=== PATIENT | male | born 1995 | race Caucasian/White ===

== ENCOUNTER 2023-01-06 19:50 | Outpatient (BNV) | payer OTHER, SELFPAY | END 2023-01-07 08:00 | PROVIDERS: Admitting Provider Psychiatry & Neurology Psychiatry; Visit Provider Internal Medicine | DX: R00.1 Bradycardia, unspecified (principal) | CPT/HCPCS: 93010 ==

== ENCOUNTER 2023-01-06 19:50 | Inpatient (IN) | payer OTHER, SELFPAY ==
--- NOTE | ~2023-01-06 | XR_ITS ---
EXAMINATION: XR HAND, RIGHT CLINICAL INFORMATION: Trauma. Pain. COMPARISON: None available. TECHNIQUE: PA, lateral, and oblique views of the right hand. FINDINGS: The bones and soft tissues are normal. No fracture. Alignment is anatomic. Joint spaces are maintained. No erosions or soft tissue calcifications. XR/XR hand RT 2V IMPRESSION: Normal right hand.
[2023-01-06 20:00] VITALS: BP 111/67; PULSE 52; RESP 16; TEMP 36.6; O2SAT 98
[2023-01-06] MEDS: Ibuprofen 400 MG TABLET PO (22:35)
[2023-01-06] MEDS: Benztropine Mesylate 0.5 MG TABLET PO (22:36)
[2023-01-06] MEDS: risperiDONE 2 MG TABLET PO (22:36)
--- NOTE | 2023-01-06 23:30 | PC.ADMIT ---
Ran transferred from [facility] [place] [facility] on a section 12, he signed a CV upon arrival to [facility] [place]. Ran is alert and oriented X'4 he is pleasant and cooperative with the admission process. The patient states that his medications are not working any more I hear voices and I saw my uncle the other day. I knew I was hallucinating because like I said he's . patient had a diagnosis of MDD with psychotic features. he denies suicidal/homicidal ideation however he endorses depression and anxiety as well as auditory and visual hallucinations. he stated that he wants to stay here as long as it takes to get his medications adjusted. treatment plan initiated, oriented to unit, monitor for safety
--- NOTE | 2023-01-07 08:00 | ECG_ITS ---
Test Reason : BRADYCARDIA Blood Pressure : / mmHG Vent. Rate : 056 BPM Atrial Rate : 056 BPM P-R Int : 146 ms QRS Dur : 090 ms QT Int : 424 ms P-R-T Axes : 037 025 025 degrees QTc Int : 409 ms Sinus bradycardia with sinus arrhythmia Otherwise normal ECG No previous ECGs available Referred By: Dion Alcantar Electronically Signed By:TEETEE DAN
[2023-01-07] MEDS: Benztropine Mesylate 0.5 MG TABLET PO ×2 (08:55→21:04)
[2023-01-07] MEDS: risperiDONE 2 MG TABLET PO ×2 (08:55→21:05)
[2023-01-07] MEDS: Ibuprofen 400 MG TABLET PO (08:55)
[2023-01-07 09:31] VITALS: BP 121/74; PULSE 63; RESP 14; TEMP 36.9; O2SAT 98
[2023-01-07 10:06] LABS: Alanine Aminotransferase 22 U/L (0-40); Albumin Level 4.6 g/dL (3.5-5.0); Alkaline Phosphatase 66 U/L (39-117); Anion Gap 17 (12-20); Aspartate Amino Transferase 16 U/L (5-37); Bilirubin Total 0.5 mg/dL (0.0-1.0); Blood Urea Nitrogen 10 mg/dL (9-16); Calcium 9.9 mg/dL (8.4-10.2); Carbon Dioxide 19 mmol/L (22-29); Chloride 109 mmol/L (96-108); Cholesterol 124 mg/dL; Estimated Glomerular Filt Rate > 60; Glucose Fasting 110 mg/dL (60-99); HDL Cholesterol 41 mg/dL; LDL Cholesterol Calculated 76 mg/dl; Potassium 3.6 mmol/L (3.3-5.1); Sodium 141 mmol/L (135-145); Total Protein 7.6 g/dL (6.5-8.0); Triglycerides 39 mg/dL
[2023-01-07 10:23] LABS: Free T4 (Free Thyroxine) 0.98 ng/dL (0.71-1.85); Thyroid Stimulating Hormone 1.31 uIU/mL (0.32-4.0)
[2023-01-07 10:28] LABS: Folate 10.5 ng/mL (> or = 4.0); Vitamin B12 539 pg/mL (200-900)
--- NOTE | 2023-01-07 15:41 | P.HPPS_ITS ---
HPI Date of Service: 01/07/23 Chief Complaint: Psychosis aud choi Sources of Information: patient interviewed, chart reviewed and crisis/core team assessment reviewed HPI Subjective Notes: Pierre Warning and Conditional Voluntary Narrative: Patient is a 27-year-old male with history of schizophrenia who presents for worsening AH and unsafe thoughts and the face of increased stress from his mother. Patient reports his last hospitalization was about 2 years ago but since then his symptoms have been well treated, without any AH and he has remained on his medications. Patient says over the past few weeks his mother has been significantly aggravating him, wanting him to break-up with his girlfriend and texting him relentlessly mean things, and 1 point saying she hopes he chokes on a piece of pizza. Patient tried to block her from his phone but then she threaten to called DCF if he did. Patient and his girlfriend live at his sister's and says that his sister will corroborate his account and gave permission to call her, giving her phone number. Patient says that starting about 3 weeks ago, coinciding with this increased stress, AH has returned. He said it tells him to do things like punch the wall which he did and hurt his h and. It also has told him to hurt himself or kill himself but he says he does not want to at all and has no actual suicidality; that said he was worried that if symptoms do not get better that he would eventually worsened and was concerned about getting suicidal; he endorses trouble sleeping at night, frequently waking up. Patient says that since coming to the unit he has had no AH at all and slept well last night. Patient was initially worried that his medications had stop working however he now thinks that they do work well but that his stress level just became overwhelming. He denies any SI at all and says he loves life. Past Psychiatric History: Last hospitalization 2 years ago following psychotic symptoms SI, and having overdosed on vitamins Medical Evaluation Reviewed: Hospitalist Joseph Pending [facility] Medical History (Updated 01/07/23 @ 19:21 by Ari Kidd MD) No pertinent past medical history Schizophrenia Family History: Mother; mental illness Social History: Currently lives at his sister Edward with his supportive girlfriend Patient has a total of 7 sisters however is only close to 1 of Substance History: None expressed Trauma History: Deferred Diagnostics Vital Signs (24Hr): Vital Signs - 24 hr 01/06/23 20:00 01/07/23 09:31 Temperature 97.8 F 98.4 F Pulse Rate 52 63 Respiratory Rate 16 14 Blood Pressure 111/67 121/74 Pulse Oximetry 98 98 Oxygen Delivery Method Room Air Room Air Labs 01/07/23 08:49 Labs: Laboratory Results - last 48 hr 01/07/23 01/07/23 08:49 08:49 Sodium 141 Potassium 3.6 Chloride 109 H Carbon Dioxide 19 L Anion Gap 17 BUN 10 Creatinine 0.83 Estim Creat Clear Calc TNP Estimated GFR > 60 Fasting Glucose 110 H Calcium 9.9 Total Bilirubin 0.5 AST 16 ALT 22 Alkaline Phosphatase 66 Total Protein 7.6 Albumin 4.6 Triglycerides 39 Cholesterol 124 LDL Cholesterol, Calc 76 HDL Cholesterol 41 Vitamin B12 539 Folate 10.5 TSH 1.31 Free T4 0.98 Meds/Allergies Meds Home Medications Medication Instructions Recorded Confirmed Type benztropine 1 mg tablet 1 mg PO BID 01/06/23 01/06/23 History diphenhydramine HCl 50 mg capsule 50 mg PO BEDTIME PRN Insomnia 01/06/23 01/06/23 History (Banophen) mirtazapine 7.5 mg tablet 7.5 mg PO BEDTIME 01/06/23 01/06/23 History propranolol 10 mg tablet 10 mg PO BID 01/06/23 01/06/23 History risperidone 3 mg tablet 3 mg PO BID 01/06/23 01/06/23 History topiramate 50 mg tablet 50 mg PO BID 01/06/23 01/06/23 History Allergies Allergies Allergy/AdvReac Type Severity Reaction Status Date / Time acetaminophen [From Tylenol] Allergy Unknown Verified 01/07/23 10:51 Mental Status Exam Mental Status Exam Narrative: Pt is alert and oriented; behavior is cooperative, friendly and calm; patient is not in distress; dressed in casual attire with unkempt hair but adequate hygiene; mood is described as anxious and affect congruent; eye contact appropriate; Speech is normal rate, volume and prosody and not pressured; no psychomotor agitation/retardation present; thought process is organized and goal directed; Thought content is on stress at home but also on tx; otherwise pertinent to relevant topics; does not seem to have delusional or paranoid thoughts; denies any SI/HI. Recent AH however patient says none for the past day. Patients insight and judgment appear intact. Assessment & Plan Assessment & Plan (1) Schizophrenia: Status: Acute Code(s): F20.9 - Schizophrenia, unspecified Plan Patient is a 27-year-old male with history of schizophrenia who presents for worsening AH and unsafe thoughts and the face of increased stress from his mother. Patient reports he has been relatively stable for the past 2 years on current medication regimen and would like it to be continued. It seems that exacerbation of psychotic symptoms is due to increased stress from his mother. Initially patient's report does is so far reasonable, rather than delusional however will continue to monitor and get collateral from his sister. Since coming to the unit, patient reports no psychotic symptoms, no AVH reasons that this is due getting reprieve from stressful situation Will continue medication regimen Patient complains of right hand pain status post punching a wall; will get x-ray (reviewed notes from [facility] ED and no x-ray done) Patient complains of dysuria; obtained UA which was unremarkable Plan: CV Q 15 minutes Continue Risperdal; it was placed a 2 mg b.i.d.; since patient says he has no ps ychotic symptoms since coming to the unit, will leave it here for now (normal 3 mg b.i.d.) Continue mirtazapine 7.5 mg q.h.s. Continue Cogentin 0.5mg b.i.d. Continue propranolol 10 mg b.i.d. Continue Topamax 50 mg b.i.d. Will obtain collateral Patient educated on: diagnosis, medication risk/benefits and medical condition Informed Consent: understands Reason for continued inpatient stay Substantial Risk for: rapid decompensation Statement Statement: I have reviewed the history and physical and performed a pertinent examination on my patient. No changes have occurred unless specified. If the History and Physical was not performed prior to admission, the Hospitalist's service will be consulted for completing the admission physical. Time Spent With Patient Time: Total time managing care of this patient today ____ minutes.
--- NOTE | 2023-01-07 15:48 | P.CONHOSP_ITS ---
History of Present Illness Data of Consult Service Date: 01/07/23 Requesting physician: Dion Alcantar Primary Care Provider: None Physician HPI Reason for consult: medical H&P 27 year old male without significant medical history admitted to psychiatry with consult placed to hospitalist service for medical H&P. [place] [facility] Labs unmarkable. UTox negative. Patient reports punching a brick wall out of anger 2 days ago. Since then has had limited rom and pain right hand, specif ically 3rd mcp joint. He is also reporting increased urinary frequency, dysuria but denies fevers chills, hematuria, urgency, flank pain, and does report some lower abd pain. No other complaints. No etoh use, cigarette smoking, or illicit drug use. Review of Systems Review of Systems: General: No fevers, malaise, unintentional weight loss HEENT: No blurred vision, diplopia. No sore throat, nasal congestion, rhinorrhea, sinus pain, ear pain Cardiovascular: No chest pain, palpitations, or leg edema Respiratory: No shortness of breath, wheezing, cough GI: +abd pain. No nausea, vomiting, diarrhea, constipation, melena, hematochezia : +dysuria, +increased urinary frequency. No hematuria, decreased urinary output MSK: No myalgia, back pain. +R hand pain Neuro: No headaches, weakness, paresthesias Skin: No rashes or lesions PMFSH Medical History No pertinent past medical history Social History Household Members: Family and Other Household Members Other:: sister, nephews, niece and girlfriend Housing: House Do you presently have visiting nurse or other home services: No Patient Tobacco Use Status: Never used Tobacco Use of substances other than those prescribed or required for medical reasons: No Currently Displaying Signs/Symptoms of Drug Intoxication Withdrawal: No Have you been hit, kicked, punched, or otherwise hurt by someone within the past year? If so, by whom?: No Is there a partner from a previous relationship who is making you feel unsafe now?: No Are you made to feel afraid or neglected: No Advance Directives: No Advance Directives Information Provided: Yes Do you have thoughts of harming others: None Do you have a plan to hurt others: No Plan Recently lost weight without trying: No Nutrition Risks: No Nutritional Risk Poor oral hygiene: Yes service: No Sexual orientation: Straight/Heterosexual Meds Allergies Allergy/AdvReac Type Severity Reaction Status Date / Time acetaminophen [From Tylenol] Allergy Unknown Verified 01/07/23 10:51 Active Medications: Current Medications Al Hydroxide/Mg Hydroxide (Magnesium Hydrox/Alum Hydrox 30 Ml Oral.Susp) 30 ml PO Q6H PRN PRN Reason: Heartburn/Nausea Benztropine Mesylate (Benztropine Mesylate 0.5 Mg Tablet) 0.5 mg PO BID [facility] Last Admin: 01/07/23 08:55 Dose: 0.5 mg Hydroxyzine HCl (Hydroxyzine Hcl 25 Mg Tablet) 25 mg PO Q6H PRN PRN Reason: Anxiety Ibuprofen (Ibuprofen 600 Mg Tablet) 600 mg PO Q6H PRN PRN Reason: Pain, Moderate(Pain Scale 4-6) Magnesium Hydroxide (Milk Of Magnesia 30 Ml Oral.Susp) 30 ml PO DAILY PRN PRN Reason: Constipation Risperidone (Risperidone 2 Mg Tablet) 2 mg PO BID [facility] Last Admin: 01/07/23 08:55 Dose: 2 mg Trazodone HCl (Trazodone Hcl 50 Mg Tablet) 50 mg PO BEDTIME MRX1 PRN PRN Reason: Insomnia Home Medications Medication Instructions Recorded Confirmed Last Taken Type benztropine 1 mg tablet 1 mg PO BID 01/06/23 01/06/23 Unknown History diphenhydramine HCl 50 mg capsule 50 mg PO BEDTIME PRN Insomnia 01/06/2312/09 Unknown History (Banophen) mirtazapine 7.5 mg tablet 7.5 mg PO BEDTIME 01/06/23 01/06/23 Unknown History propranolol 10 mg tablet 10 mg PO BID 01/06/23 01/06/23 Unknown History risperidone 3 mg tablet 3 mg PO BID 01/06/23 01/06/23 Unknown History topiramate 50 mg tablet 50 mg PO BID 01/06/23 01/06/23 Unknown History Physical Exam Vital Signs and Narrative: Vital Signs: Last Vital Signs Temp 98.4 F 01/07/23 09:31 Pulse 63 01/07/23 09:31 Resp 14 01/07/23 09:31 BP 121/74 01/07/23 09:31 Pulse Ox 98 01/07/23 09:31 O2 Del Method Room Air 01/07/23 09:31 Constitutional - Awake and Alert, No apparent distress Eyes - PERRLA, EOMI Cardiovascular - S1S2, RRR, No edema Respiratory - Normal lung expansion, Normal respiratory effort, No respiratory distress, CTA bilaterally Gastrointestinal - mild suprapubic ttp, ND; +BS; No rebound or guarding - No CVA tenderness Extremities - no calf tenderness bilaterally, no swelling Musculoskeletal - Normal inspection, tenderness right 3rd mcp joint with limited rom right hand, no swelling or erythema or ecchymosis Skin - Warm/Dry Neurological - Alert & oriented x3, CN II-XII in tact, 5/5 strength BUE and BLE Psychological - Appropriate affect Results Labs 01/07/23 08:49 Labs: Laboratory Results - last 24 hr 01/07/23 01/07/23 08:49 08:49 Anion Gap 17 Estim Creat Clear Calc TNP Estimated GFR > 60 Fasting Glucose 110 H Calcium 9.9 Total Bilirubin 0.5 AST 16 ALT 22 Alkaline Phosphatase 66 Total Protein 7.6 Albumin 4.6 Triglycerides 39 Cholesterol 124 LDL Cholesterol, Calc 76 HDL Cholesterol 41 Vitamin B12 539 Folate 10.5 TSH 1.31 Free T4 0.98 Assessment and Plan (1) Routine medical exam: Status: Acute Plan 27 year old male without significant medical history admitted to psychiatry with consult placed to hospitalist service for medical H&P. Chart reviewed from [facility]. #Mood disorder -plan per psychiatry #Right hand pain -s/p punching brick wall -xray right hand ordered -tylenol, ibuprofen, ice #Dysuria/increased urinary frequency -UA CC with urine culture ordered Thank you for this consult. Will continue following for results. Time Spent With Patient Time: Total time managing care of this patient today ____ minutes.
[2023-01-07 16:54] LABS: Appearance Urine Clear; Color Urine Yellow; Glucose Urine UA Negative (Negative); Leukocyte Esterase Urine Negative (Negative); Nitrite Urine Negative (Negative); PH 5.5 (5.0-9.0); Specific Gravity - Urine 1.025 (1.005-1.025); Urine Blood Negative (Negative); Urine Ketones Negative (Negative); Urine Protein Negative (Neg-Trace)
[2023-01-07 17:39] VITALS: BMI 27.1
--- NOTE | 2023-01-07 17:59 | PC.NURSE ---
Patient signed 3 day notice on 01/07/23.
[2023-01-07] MEDS: Milk of Magnesia 30 ML ORAL.SUSP PO (20:27)
[2023-01-07] MEDS: Mirtazapine 7.5 MG TABLET PO (21:04)
[2023-01-07] MEDS: Propranolol HCL 10 MG TABLET PO (21:05)
[2023-01-07 21:08] VITALS: BP 110/68; PULSE 74; TEMP 36.5; O2SAT 99
[2023-01-08 08:20] VITALS: BP 114/64; PULSE 59; TEMP 36.6; O2SAT 100
[2023-01-08] MEDS: risperiDONE 2 MG TABLET PO ×2 (08:35→20:44)
[2023-01-08] MEDS: Propranolol HCL 10 MG TABLET PO ×2 (08:35→20:44)
[2023-01-08] MEDS: Benztropine Mesylate 0.5 MG TABLET PO ×2 (08:35→20:44)
[2023-01-08] MEDS: Ibuprofen 600 MG TABLET PO ×2 (08:36→16:26)
--- NOTE | 2023-01-08 08:41 | P.PNPSI_ITS ---
Subjective Subjective Date of Service: 01/08/23 Reason For Visit: Psychosis aud choi Subjective Notes: Conditional Voluntary Interim History: Pt denies suicidal or homicidal ideation. Pt reports feeling better. He denies VH/AH. He states it is due to his relationship with his mother that he hears voices and struggles with mental health. He reports he will go to his sister's house. Per nursing, pt sleeping through the night. No behavioral concerns. He is taking medications as prescribed. No side effect. Review of Systems Review of Systems General: No fevers, malaise, unintentional weight loss HEENT: No blurred vision, diplopia. No sore throat, nasal congestion, rhinorrhea, sinus pain, ear pain Cardiovascular: No chest pain, palpitations, or leg edema Respiratory: No shortness of breath, wheezing, cough GI: +abd pain. No nausea, vomiting, diarrhea, constipation, melena, hematochezia : +dysuria, +increased urinary frequency. No hematuria, decreased urinary output MSK: No myalgia, back pain. +R hand pain Neuro: No headaches, weakness, paresthesias Skin: No rashes or lesions Mental Status Exam Mental Status Exam Narrative: Appearance: casually groomed, fair hygiene, in NAD Behavior: cooperative Psychomotor: no agitation or retardatino noted Speech: clear, normal rate, rhythm, spontaneous TP: linear TC: wanting to get away from mother, feeling better Mood: better Affect: congruent SI: none HI: none VH/AH: none Delusions: none Insight/judgment: fair x 2. memory/cog: alert, oriented x 3. Diagnostics Vital Signs (24Hr): Vital Signs - 24 hr 01/07/23 09:31 01/07/23 21:08 01/08/23 08:20 Temperature 98.4 F 97.7 F 97.9 F Pulse Rate 63 74 59 Respiratory Rate 14 Blood Pressure 121/74 110/68 114/64 Pulse Oximetry 98 99 100 Oxygen Delivery Method Room Air Room Air Room Air BMI result Body Mass Index 27.1 Labs 01/07/23 08:49 Labs: Laboratory Results - last 48 hr 01/07/23 01/07/23 01/07/23 08:49 08:49 15:52 Sodium 141 Potassium 3.6 Chloride 109 H Carbon Dioxide 19 L Anion Gap 17 BUN 10 Creatinine 0.83 Estim Creat Clear Calc TNP Estimated GFR > 60 Fasting Glucose 110 H Calcium 9.9 Total Bilirubin 0.5 AST 16 ALT 22 Alkaline Phosphatase 66 Total Protein 7.6 Albumin 4.6 Triglycerides 39 Cholesterol 124 LDL Cholesterol, Calc 76 HDL Cholesterol 41 Vitamin B12 539 Folate 10.5 TSH 1.31 Free T4 0.98 Urine Color Yellow Urine Appearance Clear Urine pH 5.5 Ur Specific [place] 1.025 Urine Protein Negative Urine Glucose (UA) Negative Urine Ketones Negative Urine Blood Negative Urine Nitrite Negative Ur Leukocyte Esterase Negative Imaging Radiology Impressions: ITS Impressions Hand X-Ray 01/07/23 17:35 IMPRESSION: Normal right hand. Medications Medications Current Medications Al Hydroxide/Mg Hydroxide (Magnesium Hydrox/Alum Hydrox 30 Ml Oral.Susp) 30 ml PO Q6H PRN PRN Reason: Heartburn/Nausea Benztropine Mesylate (Benztropine Mesylate 0.5 Mg Tablet) 0.5 mg PO BID [facility] Last Admin: 01/08/23 08:35 Dose: 0.5 mg Hydroxyzine HCl (Hydroxyzine Hcl 25 Mg Tablet) 25 mg PO Q6H PRN PRN Reason: Anxiety Ibuprofen (Ibuprofen 600 Mg Tablet) 600 mg PO Q6H PRN PRN Reason: Pain, Moderate(Pain Scale 4-6) Last Admin: 01/08/23 08:36 Dose: 600 mg Magnesium Hydroxide (Milk Of Magnesia 30 Ml Oral.Susp) 30 ml PO DAILY PRN PRN Reason: Constipation Last Admin: 01/07/23 20:27 Dose: 30 ml Mirtazapine (Mirtazapine 7.5 Mg Tablet) 7.5 mg PO BEDTIME [facility] Last Admin: 01/07/23 21:04 Dose: 7.5 mg Propranolol HCl (Propranolol Hcl 10 Mg Tablet) 10 mg PO BID [facility]; Protocol Last Admin: 01/08/23 08:35 Dose: 10 mg Risperidone (Risperidone 2 Mg Tablet) 2 mg PO BID [facility] Last Admin: 01/08/23 08:35 Dose: 2 mg Risperidone (Risperidone 1 Mg Tablet) 1 mg PO BID PRN PRN Reason: AH/psychosis Trazodone HCl (Trazodone Hcl 50 Mg Tablet) 50 mg PO BEDTIME MRX1 PRN PRN Reason: Insomnia Allergies Allergies Allergy/AdvReac Type Severity Reaction Status Date / Time acetaminophen [From Tylenol] Allergy Unknown Verified 01/07/23 10:51 Assessment & Plan Assessment & Plan (1) Schizophrenia: Status: Acute Code(s): F20.9 - Schizophrenia, unspecified Plan 27 year old male without significant medical history admitted to psychiatry with consult placed to hospitalist service for medical H&P. Chart reviewed from [facility] [place]. #Mood disorder -plan per psychiatry #Right hand pain -s/p punching brick wall -xray right hand ordered -tylenol, ibuprofen, ice #Dysuria/increased urinary frequency -UA CC with urine culture ordered Thank you for this consult. Will continue following for results. 01/08- continue tx. Reason for continued inpatient stay Substantial Risk for: inability to function Time Spent With Patient Time: Total time managing care of this patient today ____ minutes.
[2023-01-08] MEDS: polyethylene glycoL 3350 17 GM POWD.PACK PO (15:18)
--- NOTE | 2023-01-08 16:23 | P.PNPSI_ITS ---
Subjective Subjective Date of Service: 01/08/23 Reason For Visit: Psychosis aud choi Interim History: met with patient; discussed with team patient calm, friendly and polite. pt remains in good behavioral and impulse control; getting along well w/ peers and staff. No SI/HI; no AH at all since coming to the unit. Patient was thankful that fiction and nonfiction prose writer called his sister as she fully corroborated patients account. Pt says he's looking forward to going home and that he misses his family. He wants to discharge tomorrow but accepts to stay until Friday. Reviewed medications and pt normally takes Risperdal 3mg BID; however, here he's been stable on 2mg BID (with 1mg BID as prn). Pt says he has ample supply of all his medications at home and will discuss how to proceed regarding dosing with his oupt provider (pt has both prescriber and therapist with whom he has good rapport). urgent care physician talked w/ pt's sister Taya who corroborates all that patient reported; she said their mother has been harassing him/them for a long time but that it's gotten much worse since he started dating a woman mother does not like. Sister says it got so bad that she eventually had patient come and live with her. She says mother threatens via text and phone calls, making outlandish accusations. Mother told Taya to kick him out of her house and if she did not, mother would call DCF and make an accusation (taya has all this on text from the mother). Taya says her brother has been stable and doing well for years and it's only after this escalation of attacks that he had a resurgence of symptoms. She welcomes him to return to her house. Mental Status Exam Mental Status Exam Narrative: Pt is alert and oriented; behavior is cooperative, friendly and calm; patient is not in distress; dressed in casual attire with adequate hygiene; mood is described as good and affect congruent; eye contact appropriate; Speech is normal rate, volume and prosody and not pressured; no psychomotor agitation/retardation present; thought process is organized and goal directed; Thought content on tx and discharge; otherwise pertinent to relevant topics; no delusional or paranoid thoughts; denies any SI/HI. Denies AVH and no evidence perceptual disturbance. Patients insight and judgment are intact. Diagnostics Vital Signs (24Hr): Vital Signs - 24 hr 01/07/23 21:08 01/08/23 08:20 Temperature 97.7 F 97.9 F Pulse Rate 74 59 Blood Pressure 110/68 114/64 Pulse Oximetry 99 100 Oxygen Delivery Method Room Air Room Air BMI result Body Mass Index 27.1 Labs 01/07/23 08:49 Labs: Laboratory Results - last 48 hr 01/07/23 01/07/23 01/07/23 08:49 08:49 15:52 Sodium 141 Potassium 3.6 Chloride 109 H Carbon Dioxide 19 L Anion Gap 17 BUN 10 Creatinine 0.83 Estim Creat Clear Calc TNP Estimated GFR > 60 Fasting Glucose 110 H Calcium 9.9 Total Bilirubin 0.5 AST 16 ALT 22 Alkaline Phosphatase 66 Total Protein 7.6 Albumin 4.6 Triglycerides 39 Cholesterol 124 LDL Cholesterol, Calc 76 HDL Cholesterol 41 Vitamin B12 539 Folate 10.5 TSH 1.31 Free T4 0.98 Urine Color Yellow Urine Appearance Clear Urine pH 5.5 Ur Specific [place] 1.025 Urine Protein Negative Urine Glucose (UA) Negative Urine Ketones Negative Urine Blood Negative Urine Nitrite Negative Ur Leukocyte Esterase Negative Imaging Radiology Impressions: ITS Impressions Hand X-Ray 01/07/23 17:35 IMPRESSION: Normal right hand. Medications Medications Current Medications Al Hydroxide/Mg Hydroxide (Magnesium Hydrox/Alum Hydrox 30 Ml Oral.Susp) 30 ml PO Q6H PRN PRN Reason: Heartburn/Nausea Benztropine Mesylate (Benztropine Mesylate 0.5 Mg Tablet) 0.5 mg PO BID [facility] Last Admin: 01/08/23 08:35 Dose: 0.5 mg Hydroxyzine HCl (Hydroxyzine Hcl 25 Mg Tablet) 25 mg PO Q6H PRN PRN Reason: Anxiety Ibuprofen (Ibuprofen 600 Mg Tablet) 600 mg PO Q6H PRN PRN Reason: Pain, Moderate(Pain Scale 4-6) Last Admin: 01/08/23 08:36 Dose: 600 mg Magnesium Hydroxide (Milk Of Magnesia 30 Ml Oral.Susp) 30 ml PO DAILY PRN PRN Reason: Constipation Last Admin: 01/07/23 20:27 Dose: 30 ml Mirtazapine (Mirtazapine 7.5 Mg Tablet) 7.5 mg PO BEDTIME [facility] Last Admin: 08/01/23 21:04 Dose: 7.5 mg Polyethylene Glycol (Polyethylene Glycol 3350 17 Gm Powd.Pack) 17 gm PO DAILY PRN PRN Reason: Constipation Last Admin: 01/08/23 15:18 Dose: 17 gm Propranolol HCl (Propranolol Hcl 10 Mg Tablet) 10 mg PO BID [facility]; Protocol Last Admin: 01/08/23 08:35 Dose: 10 mg Risperidone (Risperidone 2 Mg Tablet) 2 mg PO BID [facility] Last Admin: 01/08/23 08:35 Dose: 2 mg Risperidone (Risperidone 1 Mg Tablet) 1 mg PO BID PRN PRN Reason: AH/psychosis Trazodone HCl (Trazodone Hcl 50 Mg Tablet) 50 mg PO BEDTIME MRX1 PRN PRN Reason: Insomnia Allergies Allergies Allergy/AdvReac Type Severity Reaction Status Date / Time acetaminophen [From Tylenol] Allergy Unknown Verified 01/07/23 10:51 Assessment & Plan Assessment & Plan (1) Schizophrenia: Status: Acute Code(s): F20.9 - Schizophrenia, unspecified Plan Patient is a 27-year-old male with history of schizophrenia who presents for wor sening AH and unsafe thoughts and the face of increased stress from his mother.? Patient reports he has been relatively stable for the past 2 years on current medication regimen and would like it to be continued. It seems that exacerbation of psychotic symptoms is due to increased stress from his mother.? Initially patient's report does is so far reasonable, rather than delusional however will continue to monitor and get collateral from his sister.? Since coming to the unit, patient reports no psychotic symptoms, no AVH reasons that this is due getting reprieve from stressful situation Will continue medication regimen Patient complains of right hand pain status post punching a wall; will get x-ray (reviewed notes from [facility] [place] and no x-ray done) Patient complains of dysuria; obtained UA which was unremarkable Hospital course: 01/08 pt remains in good behavioral and impulse control; getting along well w/ peers and staff. No SI/HI; no AH at all since coming to the unit. Patient was thankful that fiction and nonfiction prose writer called his sister as she fully corroborated patients account. Pt says he's looking forward to going home and that he misses his family. He wants to discharge tomorrow but accepts to stay until Friday. Reviewed medications and pt normally takes Risperdal 3mg BID; however, here he's been stable on 2mg BID (with 1mg BID as prn). Pt says he has ample supply of all his medications at [facility] and will discuss how to proceed regarding dosing with his oupt provider (pt has both prescriber and therapist with whom he has good rapport). collateral: urgent care physician talked w/ pt's sister Taya who corroborates all that patient reported; she said their mother has been harassing him/them for a long time but that it's gotten much worse since he started dating a woman mother does not like. Sister s ays it got so bad that she eventually had patient come and live with her. She says mother threatens via text and phone calls, making outlandish accusations. Mother told Taya to kick him out of her house and if she did not, mother would call DCF and make an accusation (taya has all this on text from the mother). Taya says her brother has been stable and doing well for years and it's only after this escalation of attacks that he had a resurgence of symptoms. She welcomes him to return to her house. Impression: pt has remained in good behavioral and impulse control throughout; he has r emained organized in speech and behavior, without any psychotic symptoms, continuing to deny and AVH; no SI at all. Sister corroborates patients story. Pt has outpt providers and supportive, safe housing. Patient 3 day notice is coming due. Will continue to monitor but he does not rise to level of involuntary commitment and is does not appear to be in imminent risk for danger to self or others. Plan is for discharge on Friday. Plan: 3 day notice Q 15 minutes Continue Risperdal; it was placed a 2 mg b.i.d.; since patient says he has no psychotic symptoms since coming to the unit, will leave it here for now (normal 3 mg b.i.d.) Continue mirtazapine 7.5 mg q.h.s. Continue Cogentin 0.5mg b.i.d. Continue propranolol 10 mg b.i.d. Continue Topamax 50 mg b.i.d. Will obtain collateral #Right hand pain -s/p punching brick wall -xray right hand ordered and no fracture -tylenol, ibuprofen, ice #Dysuria/increased urinary frequency -UA CC with urine culture ordered and WNL Patient educated on: diagnosis, medication risk/benefits and therapeutic strategies Informed Consent: understands Reason for continued inpatient stay Substantial Risk for: stable for discharge Time Spent With Patient Time: Total time managing care of this patient today ____ minutes.
[2023-01-08] MEDS: Mirtazapine 7.5 MG TABLET PO (20:44)
[2023-01-08 20:47] VITALS: BP 107/65; PULSE 71; TEMP 36.9; O2SAT 98
[2023-01-09] MEDS: Ibuprofen 600 MG TABLET PO ×2 (06:59→12:26)
[2023-01-09 07:00] VITALS: BMI 27.8
[2023-01-09] MEDS: Benztropine Mesylate 0.5 MG TABLET PO ×2 (08:51→20:13)
[2023-01-09] MEDS: Propranolol HCL 10 MG TABLET PO ×2 (08:51→20:13)
[2023-01-09] MEDS: risperiDONE 2 MG TABLET PO ×2 (08:51→20:13)
[2023-01-09 09:22] VITALS: BP 108/72; PULSE 62; RESP 18; TEMP 36.8; O2SAT 99
--- NOTE | 2023-01-09 16:29 | HO.PSYCHPN ---
Subjective Subjective Date of Service: 01/09/23 Reason For Visit: Psychosis aud choi Subjective Notes: Conditional Voluntary Interim History: Pt continues to denies suicidal or homicidal ideation. Pt reports feeling better. He denies VH/AH. He continues to report he will block his mother for his own mental health. He reports he will go to his sister's house. Per nursing, pt sleeping through the night. No behavioral concerns. He is taking medications as prescribed. No side effect. Review of Systems Review of Systems General: No fevers, malaise, unintentional weight loss HEENT: No blurred vision, diplopia. No sore throat, nasal congestion, rhinorrhea, sinus pain, ear pain Cardiovascular: No chest pain, palpitations, or leg edema Respiratory: No shortness of breath, wheezing, cough GI: +abd pain. No nausea, vomiting, diarrhea, constipation, melena, hematochezia : +dysuria, +increased urinary frequency. No hematuria, decreased urinary output MSK: No myalgia, back pain. +R hand pain Neuro: No headaches, weakness, paresthesias Skin: No rashes or lesions Mental Status Exam Mental Status Exam Narrative: Appearance: casually groomed, fair hygiene, in NAD Behavior: cooperative Psychomotor: no agitation or retardatino noted Speech: clear, normal rate, rhythm, spontaneous TP: linear TC: wanting to get away from mother, feeling better Mood: better Affect: congruent SI: none HI: none VH/AH: none Delusions: none Insight/judgment: fair x 2. memory/cog: alert, oriented x 3. Diagnostics Vital Signs (24Hr): Vital Signs - 24 hr 01/08/23 20:47 01/09/23 09:22 Temperature 98.4 F 98.3 F Pulse Rate 71 62 Respiratory Rate 18 Blood Pressure 107/65 108/72 Pulse Oximetry 98 99 Oxygen Delivery Method Room Air Room Air BMI result Body Mass Index 27.8 Labs 01/07/23 08:49 Labs: Laboratory Results - last 48 hr 01/07/23 15:52 Urine Color Yellow Urine Appearance Clear Urine pH 5.5 Ur Specific [place] 1.025 Urine Protein Negative Urine Glucose (UA) Negative Urine Ketones Negative Urine Blood Negative Urine Nitrite Negative Ur Leukocyte Esterase Negative Imaging Radiology Impressions: ITS Impressions Hand X-Ray 01/07/23 17:35 IMPRESSION: Normal right hand. Medications Medications Current Medications Al Hydroxide/Mg Hydroxide (Magnesium Hydrox/Alum Hydrox 30 Ml Oral.Susp) 30 ml PO Q6H PRN PRN Reason: Heartburn/Nausea Benztropine Mesylate (Benztropine Mesylate 0.5 Mg Tablet) 0.5 mg PO BID [facility] Last Admin: 01/09/23 08:51 Dose: 0.5 mg Hydroxyzine HCl (Hydroxyzine Hcl 25 Mg Tablet) 25 mg PO Q6H PRN PRN Reason: Anxiety Ibuprofen (Ibuprofen 600 Mg Tablet) 600 mg PO Q6H PRN PRN Reason: Pain, Moderate(Pain Scale 4-6) Last Admin: 01/09/23 12:26 Dose: 600 mg Magnesium Hydroxide (Milk Of Magnesia 30 Ml Oral.Susp) 30 ml PO DAILY PRN PRN Reason: Constipation Last Admin: 01/07/23 20:27 Dose: 30 ml Mirtazapine (Mirtazapine 7.5 Mg Tablet) 7.5 mg PO BEDTIME [facility] Last Admin: 01/08/23 20:44 Dose: 7.5 mg Polyethylene Glycol (Polyethylene Glycol 3350 17 Gm Powd.Pack) 17 gm PO DAILY PRN PRN Reason: Constipation Last Admin: 01/08/23 15:18 Dose: 17 gm Propranolol HCl (Propranolol Hcl 10 Mg Tablet) 10 mg PO BID [facility]; Protocol Last Admin: 01/09/23 08:51 Dose: 10 mg Risperidone (Risperidone 2 Mg Tablet) 2 mg PO BID [facility] Last Admin: 01/09/23 08:51 Dose: 2 mg Risperidone (Risperidone 1 Mg Tablet) 1 mg PO BID PRN PRN Reason: AH/psychosis Trazodone HCl (Trazodone Hcl 50 Mg Tablet) 50 mg PO BEDTIME MRX1 PRN PRN Reason: Insomnia Allergies Allergies Allergy/AdvReac Type Severity Reaction Status Date / Time acetaminophen [From Tylenol] Allergy Unknown Verified 01/07/23 10:51 Assessment & Plan Assessment & Plan (1) Schizophrenia: Status: Acute Code(s): F20.9 - Schizophrenia, unspecified Plan 27 year old male without significant medical history admitted to psychiatry with consult placed to hospitalist service for medical H&P. Chart reviewed from [facility]. #Mood disorder -plan per psychiatry #Right hand pain -s/p punching brick wall -xray right hand ordered -tylenol, ibuprofen, ice #Dysuria/increased urinary frequency -UA CC with urine culture ordered PSYCH 01/08- continue tx. 01/09 continue tx dc tomorrow Reason for continued inpatient stay Substantial Risk for: inability to function Time Spent With Patient Time: Total time managing care of this patient today ____ minutes.
[2023-01-09] MEDS: traZODone HCL 50 MG TABLET PO (20:12)
[2023-01-09] MEDS: Mirtazapine 7.5 MG TABLET PO (20:12)
[2023-01-09] MEDS: risperiDONE 1 MG TABLET PO (20:13)
[2023-01-09 20:21] VITALS: BP 110/63; PULSE 67; RESP 18; TEMP 36.2; O2SAT 99
[2023-01-10 08:00] VITALS: BP 113/66; PULSE 63; TEMP 36.6; O2SAT 99
[2023-01-10] MEDS: risperiDONE 2 MG TABLET PO (08:00)
[2023-01-10] MEDS: Benztropine Mesylate 0.5 MG TABLET PO (08:00)
[2023-01-10] MEDS: Propranolol HCL 10 MG TABLET PO (08:00)
--- NOTE | 2023-01-10 09:42 | PM.PSYDC ---
DS: Providers Provider Date of Service: 01/10/23 Date of admission: 01/06/23 19:50 Primary care physician: None Physician Consults: 01/06/23 20:53 Consult to Hospitalist Routine Comment: Consulting Provider: Hospitalist Reason For Exam: adm physical DS: Diagnosis Discharge Diagnosis (1) Schizophrenia: Status: Acute DS: Medications Discharge Medications Home Medications: Previous Rx's Medication Instructions Recorded benztropine 0.5 mg tablet 0.5 mg PO BID #60 tabs 01/10/23 ibuprofen 600 mg tablet 600 mg PO Q6H PRN Pain, 01/10/23 Moderate(Pain Scale 4-6) #30 tabs mirtazapine 7.5 mg tablet 7.5 mg PO BEDTIME #30 tabs 01/10/23 polyethylene glycol 3350 17 gram 17 g PO DAILY PRN Constipation #14 01/10/23 oral powder packet ea propranolol 10 mg tablet 10 mg PO BID #60 tabs 01/10/23 risperidone 2 mg tablet 2 mg PO BID #60 tabs 01/10/23 trazodone 50 mg tablet 50 mg PO BEDTIME PRN Insomnia #30 01/10/23 tabs Mental Status Exam Mental Status Exam Narrative: Appearance: casually groomed, fair hygiene, in NAD Behavior: cooperative Psychomotor: no agitation or retardatino noted Speech: clear, normal rate, rhythm, spontaneous TP: linear TC: wanting to get away from mother, feeling better Mood: better Affect: congruent SI: none HI: none VH/AH: none Delusions: none Insight/judgment: fair x 2. memory/cog: alert, oriented x 3. Data Data Completed and Pending Completed studies during hospitalization [Text1]: 01/07/23 01/07/23 01/07/23 08:49 08:49 15:52 Sodium 141 Potassium 3.6 Chloride 109 H Carbon Dioxide 19 L Anion Gap 17 BUN 10 Creatinine 0.83 Estim Creat Clear Calc TNP Estimated GFR > 60 Fasting Glucose 110 H Calcium 9.9 Total Bilirubin 0.5 AST 16 ALT 22 Alkaline Phosphatase 66 Total Protein 7.6 Albumin 4.6 Triglycerides 39 Cholesterol 124 LDL Cholesterol, Calc 76 HDL Cholesterol 41 Vitamin B12 539 Folate 10.5 TSH 1.31 Free T4 0.98 Urine Color Yellow Urine Appearance Clear Urine pH 5.5 Ur Specific [place] 1.025 Urine Protein Negative Urine Glucose (UA) Negative Urine Ketones Negative Urine Blood Negative Urine Nitrite Negative Ur Leukocyte Esterase Negative Imaging Diagnostic Imaging Impressions Hand X-Ray 01/07/23 17:35 IMPRESSION: Normal right hand. DS: Summary Hospital Course Hospital Course: Patient is a 27-year-old male with history of schizophrenia who presents for worsening AH and unsafe thoughts and the face of increased stress from his mother.? Patient reports his last hospitalization was about 2 years ago but since then his symptoms have been well treated, without any AH and he has remained on his medications.? Patient says over the past few weeks his mother has been significantly aggravating him, wanting him to break-up with his girlfriend and texting him relentlessly mean things, and 1 point saying she hopes he chokes on a piece of pizza.? Patient tried to block her from his phone but then she threaten to called DCF if he did.? Patient and his girlfriend live at his sister's and says that his sister will corroborate his account and gave permission to call her, giving her phone number.? Patient says that starting about 3 weeks ago, coinciding with this increased stress, AH has returned.? He said it tells him to do things like punch the wall which he did and hurt his hand.? It also has told him to hurt himself or kill himself but he says he does not want to at all and has no actual suicidality; that said he was worried that if symptoms do not get better that he would eventually worsened and was concerned about getting suicidal; he endorses trouble sleeping at night, frequently waking up.? Patient says that since coming to the unit he has had no AH at all and slept well last night.? Patient was initially worried that his medications had stop working however he now thinks that they do work well but that his stress level just became overwhelming.? He denies any SI at all and says he loves life. Past Psychiatric History: Last hospitalization 2 years ago following psychotic symptoms SI, and having overdosed on vitamins Medical Evaluation Reviewed: Hospitalist Joseph Pending HOSPITAL COURSE On the unit, pt was admitted on a CV and placed on 15 minutes checks for safety. Pt was initially assigned under the care of Dr. Ari Kidd. After discussing risks, benefits and alternative treatment options, pt agreed to start risperidone, which was titrated to 2mg po BID. Pt gradually reported less AH/VH. He denied suicidal or homicidal ideation throughout this hospital state. Pt spoke openly about difficult relationship that he has had with his mother throughout his life. Pt currently resides at his sister's house and plans to return there. Collateral information was gathered from the sister who confirms that mother has been intrusive and not supportive of his mental health. Sister plans to do restraining order against mother. Sister reported pt appeared in much improved condition and denied any safety concerns at time of discharge. There were no incidences of disruptive behaviors nor need for restraints. Pt was visible on the unit and attended assigned groups. He was social with select peers. He was eating and sleeping well. Status at Discharge Cognitive/behavioral status at discharge: Pt with brighter, non labile affect. Pt denies SI/HI. He also denies VH/AH. He is future oriented. He is sleeping and eating well. No aggression towards self or others. Functional status at discharge: independent ambulation Overall status at discharge: patient is progressing back to baseline Time Spent with Patient Time attestation: Total time managing care of this patient today _30___ minutes. Time spent: Greater than 30 minutes Discharge Plan Discharge Anticipated Discharge Date/Time: 01/10/23 09:28 Patient Disposition: Home, Self-Care Discharge Diagnosis: schizophrenia Referrals: Navdeep Smith (Therapy) [Other] - 01/14/23 1:00 pm (IN OFFICE APPOINTMENT -Please arrive fifteen minutes early to your appointment in order to fill out necessary paperwork. ) Jesus Castro (Psychiatry) [Other] - 02/06/23 3:00 pm (IN OFFICE APPOINTMENT -Psychiatric Evaluation ) Jesus Castro (Psychiatry) [Other] - 03/12/23 11:00 am (IN OFFICE APPOINTMENT -Medication Management ) Shanel (Case Management) [Other] - 1 Week (Shanel is the assigned healthcare administrative assistant through your insurance company. She will reach out to you once you are discharged home) [facility] [Provider Group] - 1 Week Discharge Medications: New benztropine 0.5 mg Tablet 0.5 mg PO BID Qty: 60 0RF trazodone 50 mg Tablet 50 mg PO BEDTIME PRN (Reason: Insomnia) Qty: 30 0RF polyethylene glycol 3350 17 gram Powder In Packet 17 g PO DAILY PRN (Reason: Constipation) Qty: 14 0RF risperidone 2 mg Tablet 2 mg PO BID Qty: 60 0RF propranolol 10 mg Tablet 10 mg PO BID Qty: 60 0RF Protocol: Hold for SBP/HR < HOLD for SBP < : 90 HOLD for HR < : 60 ibuprofen 600 mg Tablet 600 mg PO Q6H PRN (Reason: Pain, Moderate(Pain Scale 4-6)) Qty: 30 0RF mirtazapine 7.5 mg Tablet 7.5 mg PO BEDTIME Qty: 30 0RF Discontinued diphenhydramine HCl [Banophen] 50 mg capsule 50 mg PO BEDTIME PRN (Reason: Insomnia) risperidone 3 mg tablet 3 mg PO BID propranolol 10 mg tablet 10 mg PO BID benztropine 1 mg tablet 1 mg PO BID topiramate 50 mg tablet 50 mg PO BID mirtazapine 7.5 mg tablet 7.5 mg PO BEDTIME Discharge Orders: Discharge Order (Routine); Ordered 01/10/23 Ordered By: Jesi Whaley Diet: Regular diet Activity on Discharge: As tolerated Stand Alone Forms: Patient Portal Discharge page, Community Support Care Plan Goals: 1. Maintain mood 2. No aggression towards self or others 3. No SI/HI 4. Less VH/AH Health Concerns: Follow up with PCP Plan of Treatment: 1. Take meds at prescribed 2. Go to nearest ED or call 911 in event of emergency Assessment: Pt bright, non labile affect. No SI/HI. No VH/AH. Sleeping and eating well. Discharge Date/Time: 01/10/23 10:25
== END 2023-01-10 10:25 | disposition home or self-care (01) | DRG 750 ==
PROVIDERS: Physician Assistant; Psychiatry & Neurology Psychiatry; Admitting Provider Psychiatry & Neurology Psychiatry; Visit Provider Psychiatry & Neurology Psychiatry
DX: F20.9 Schizophrenia, unspecified (principal); M79.641 Pain in right hand; R30.0 Dysuria; Z79.899 Other long term (current) drug therapy
CPT/HCPCS: 36415; 73120; 80053; 80061; 81003; 82607; 82746; 84439; 84443; 93005

== ENCOUNTER → 2023-01-06 19:50 | Outpatient (BNV) | payer OTHER, SELFPAY | PROVIDERS: Admitting Provider Psychiatry & Neurology Psychiatry; Visit Provider Psychiatry & Neurology Psychiatry | DX: F20.9 Schizophrenia, unspecified (principal) | CPT/HCPCS: 90792; 99231; 99232; 99499 ==

== ENCOUNTER → 2023-01-06 19:50 | Outpatient (BNV) | payer OTHER, SELFPAY | PROVIDERS: Admitting Provider Psychiatry & Neurology Psychiatry; Visit Provider Physician Assistant | DX: M79.641 Pain in right hand (principal); R30.0 Dysuria | CPT/HCPCS: 99222 ==